=== PATIENT | female | born 1955 | race African-American/Black ===

== ENCOUNTER 2017-06-17 13:49 | Emergency (ER) | payer OTHER ==
[2017-06-17 14:05] VITALS: BP 151/88; PULSE 90; TEMP 98.6; BMI 35.5
--- NOTE | 2017-06-17 15:22 | PDOC ---
History of Present Illness - General Chief Complaint: Pain Stated Complaint: LUMP ON BREAST Time Seen by Provider: 06/17/17 14:46 History Source: Patient Exam Limitations: No Limitations - History of Present Illness Initial Comments: 06/17/17 15:16 Patient is a 62F with history of NIDDM here today complaining of a breast mass with associated pain around the area for the past two weeks. Patient describes the pain as a burning. She denies fevers, chills, nausea, and vomiting. She endorses having chicken pox as a child, denies getting shingles vaccine. Patient had a mammogram a year ago which she says was normal. Does not have PCP follow up. Denies chest pain, shortness of breath, abdominal pain. Past History - Past Medical History Allergies/Adverse Reactions: Allergies Allergy/AdvReac Type Severity Reaction Status Date / Time Penicillins Allergy Verified 06/17/17 14:05 Home Medications: Ambulatory Orders Enalapril Maleate [Vasotec -] 5 mg PO DAILY 06/17/17 Glimepiride [Amaryl] 2 mg PO DAILY 06/17/17 Metformin HCl [Glucophage -] 500 mg PO BID 06/17/17 COPD: No Diabetes: Yes - Suicide/Smoking/Psychosocial Hx Smoking History: Never smoked Review of Systems - Review of Systems Comments:: 06/17/17 15:22 GENERAL/CONSTITUTIONAL: No fever or chills. No weakness. HEAD, EYES, EARS, NOSE AND THROAT: No change in vision. No sore throat. CARDIOVASCULAR: No chest pain or shortness of breath RESPIRATORY: Positive for cough. Negative for wheezing, or hemoptysis. GASTROINTESTINAL: No nausea, vomiting, diarrhea or constipation. GENITOURINARY: No dysuria, frequency, or change in urination. MUSCULOSKELETAL: No joint or muscle swelling or pain. No neck or back pain. SKIN: No rash NEUROLOGIC: Positive for headache. Negative for vertigo, loss of consciousness, or change in strength/sensation. ENDOCRINE: No increased thirst. No abnormal weight change ALLERGIC/IMMUNOLOGIC: No hives or skin allergy. *Physical Exam - Vital Signs Last Vital Signs Temp Pulse Resp BP Pulse Ox 98.6 F 90 18 151/88 99 06/17/17 14:02 06/17/17 14:02 06/17/17 14:02 06/17/17 14:02 06/17/17 14:02 - Physical Exam Comments: 06/17/17 15:23 GENERAL: Awake, alert, and fully oriented, in no acute distress R BREAST: No mass appreciated, no rash, nontender. No discharge, no signs of trauma. No lymph nodes appreciated. HEAD: No signs of trauma, normocephalic, atraumatic EYES: PERRLA, EOMI, sclera anicteric, conjunctiva clear ENT: Auricles normal inspection, hearing grossly normal, nares patent, oropharynx clear without exudates. Moist mucosa LUNGS: No distress, speaks full sentences, clear to auscultation bilaterally HEART: Regular rate and rhythm, normal S1 and S2, no murmurs, rubs or gallops, peripheral pulses normal and equal bilaterally. EXTREMITIES: Normal inspection, Normal range of motion, no edema. No clubbing or cyanosis. NEUROLOGICAL: Cranial nerves II through XII grossly intact. Normal speech, normal gait, no focal sensorimotor deficits SKIN: Warm, Dry, normal turgor, no rashes or lesions noted. Medical Decision Making - Medical Decision Making 06/17/17 15:24 62F with history of DM here today with possible breast mass. Vital signs stable and normal. Mass not appreciated on exam. No rash, exam not suggestive of abscess or shingles. Will set up PCP follow up for patient for possible breast mass. *DC/Admit/Observation/Transfer Diagnosis at time of Disposition: Breast mass - Discharge Dispostion Disposition: HOME Condition at time of disposition: Good Admit: No - Referrals Referrals: Felix Oneil MD [Staff Physician] - - Patient Instructions Printed Discharge Instructions: DI for Breast Mass -- Uncertain Cause Additional Instructions: Please return if you have any new, worsening or concerning symptoms. Please call the number provided to set up your primary care tomorrow. - Post Discharge Activity
--- NOTE | 2017-06-17 15:23 | PDOC ---
Attending Attestation - HPI HPI: 06/17/17 15:24 The patient is a 62 year old female with a past significant medical history of non-insulin dependent diabetes who presents to the emergency department with mild right non-radiating breast pain secondary to a lump on left breast since a day ago. She describes the pain as a burning. She denies any fever, chills, nausea, vomiting, and diarrhea. She denies any chest pain and shortness of breath. She reports a normal mammogram in 2016. 06/17/17 15:28 ROS: A complete review of 10 out of 10 review of systems is taken and is negative apart from what is previously mentioned below and in the HPI. - Physicial Exam PE: 06/17/17 15:26 Vitals: Triage Vital signs reviewed General Appearance: no acute distress, well nourished well developed, Head: Atraumatic, normocephalic Eyes: Pupils equal reactive round, extraocular movement intact Nose: Nares patent bilaterally;no nasal congestion Throat: mucous membranes moist, Neck: Supple;No Nuchal rigidity Chest Wall: Nontender Cardiac: Regular rate and rhythm, no murmurs, no rubs, no gallops, Lungs: Clear to auscultation bilateral, good air movement bilaterally, Abdomen: Soft, nondistended, normal bowel sounds, nontender to palpation Rectal: Exam deferred Breast: 1 cm lump noted on right breast. Extremities: Full range of motion to all extremities, no cyanosis, clubbing, or edema Skin: Warm and dry, no rashes or lesions, no petechiae Neuro: AOX3; Cranial Nerves 2-12 grossly c intact, Strength intact to all extremities, Sensation intact to all extremities, gait normal Psych: normal mood, normal affect - Medical Decision Making 06/17/17 15:29 Documentation prepared by Danna Gallardo, acting as director global medical affairs for Manny Lowry MD. <Danna Gallardo - Last Filed: 06/17/17 15:28> - Resident Resident Name: Anthony Sauceda - ED Attending Attestation I have performed the following: I have examined & evaluated the patient, The case was reviewed & discussed with the resident, I agree w/resident's findings & plan, Exceptions are as noted - Medical Decision Making No acute findings on examination. No fever no weight loss no lymphadenopathy. Patient scheduled for follow-up tomorrow morning Findings, the need for follow-up, strict return instructions discussed with patient. <Manny Lowry - Last Filed: 06/17/17 16:35>
== END 2017-06-17 15:54 | disposition home or self-care (01) ==
LOC: JER 13:49
DX: N63.0 Unspecified lump in unspecified breast (principal); E11.9 Type 2 diabetes mellitus without complications; Z79.84 Long term (current) use of oral hypoglycemic drugs
CPT/HCPCS: 99282-25